=== PATIENT | male | born 1990 | race Caucasian/White ===

== ENCOUNTER 2022-10-26 04:00 | Emergency (ER) | payer OTHER, BC, SELFPAY ==
[2022-10-26 04:00] VITALS: BP 155/90; PULSE 101; RESP 16; TEMP 36.6; O2SAT 97; BMI 27.8
--- NOTE | 2022-10-26 05:39 | EDS_ITS ---
HPI History of Present Illness HPI Narrative: Left index finger laceration at work. Within the last 2 hours. Chief Complaint: Laceration Informant: patient Occured/Mechanism Mechanism/Context: Yes injury Onset/Context/Timing Onset: Today and Hours Context: Sudden Onset Timing: Continuous Quality of Pain: Sharp Current Severity: Mild Maximum Severity: Mild Associated Symptoms Associated Symptoms: Negative for Parasthesia, Weakness or Loss of Funtion Narrative Narrative: 32-year-old male no seen past medical history. Tetanus up-to-date within the last 5 years. Was at work tonight and cut his left index finger on the palmar distal and on a piece of metal. No other complaints. Worker's Comp. Tetanus Immunization: <5 years Prior similar symptoms: Yes Recent Illness/Hospitalization: No PFSH PFSH no medical history Home Medications NK 10/26/22 [History Last Taken Unknown] Allergy/AdvReac Type Severity Reaction Status Date / Time No Known Allergies Allergy Verified 10/26/22 04:02 no surgical history Social History Smoking Status: Never smoker ROS ROS ED ROS Narrative Denies recent illness. Review of Systems ROS Unobtainable: Denies due to encephalopathy Constitutional Constitutional ED: Denies chills or fever(s) Eyes Eyes: Denies blurry vision ENT ENT ED: Denies ear pain Cardiovascular Cardiovascular: Denies chest pain Respiratory/Chest Respiratory/Chest: Denies cough Gastrointestinal Gastrointestinal: Denies abdominal pain Genitourinary Genitourinary ED: Denies dysuria Musculoskeletal Musculoskeletal: Denies back pain Integumentary Denies abscess Neurologic Neurologic: Denies headache(s) Psychiatric Psychiatric: Denies anxiety Endocrine Endocrinology: Denies cold intolerance Hematologic/Lymphatic Hematologic/Lymphatic: Denies easy bleeding or easy bruising Allergic/Immunologic Allergic/Immunologic ED: Denies mouth swelling or tongue swelling EXAM Physical Exam Narrative Exam Narrative: 32-year-old male no acute distress vital signs stable afebrile. Exam normal except left index finger palmar distal and he has a 3 cm laceration. Flexion extension intact. Normal touch sensation. Normal cap refill. There is pulsatile bleeding at the is a branch of the ulnar side digital nerve of the left index finger. No foreign body no infection. Const Vital Signs: 10/26/22 04:00 Temperature 98 F Temperature Source Temporal Pulse Rate 101 H Respiratory Rate 16 Blood Pressure 155/90 H Blood Pressure Mean 111 Pulse Ox 97 Oxygen Delivery Method Room Air Positive well nourished and well developed; Negative for obese, cachectic, contractures or unkempt General Appearance ED: well developed and NAD; Negative for unkempt, cachectic, contractures, cyanotic or diaphoretic Nutritional Appearance: Negative for cachectic or obese HEENT Reports moist mucous membranes normocephalic and atraumatic; Negative for trauma or tenderness Eyes PERRL and EOMs intact bilaterally General Eye ED: Negative for other Neck full ROM and supple General: Negative for tenderness Lymph Lymphatic: Negative for other Resp normal respiratory effort and clear to auscultation bilaterally Effort and Inspection: Negative for pain with movement Auscultation: Negative for rales, rhonchi or wheezes Cardio regular rate, regular rhythm, S1 normal heart sound, S2 normal heart sound and no murmurs GI non-tender, non-distended and no masses Extremity normal to inspection and full ROM Extremity Narrative: Except laceration distal third left index finger just past the DIP. Involves the skin and subcu tissue. No joint or bony involvement. There is a pulsatile bleeding at the ends of branch of the digital artery. He has cap refill. He has distal touch sensation. No foreign body. No infection. Full flexion extension. General Extremety ED: Negative for other findings General Extremity: Negative for other findings Neuro oriented x3, CN's II-XII intact bilaterally, moves all extremities, no focal motor deficits and no sensory deficits noted Sensorium / Orientation: alert, oriented to person, oriented to place and oriented to time; Negative for orientation impaired, lethargic or stuporous Motor Exam: strength 5/5 throughout Psych mental status grossly normal Appearance: Negative for unkempt Attitude: No agitated Mood & Affect: Negative for depressed, anxious or tearful Skin Lesions: no lesions Rashes: no rashes Trauma: laceration; Negative for no lacerations or abrasions MDM MDM MDM Narrative Medical decision making narrative: 32-year-old male left index finger laceration at work. Worker's Comp. Will need repaired. Digital block. Cleaned with Shur-Clens. Copiously irrigated and explored. Closed using a total of 6, 5-0 Ethilon simple interrupted sutures. Proper hemostasis and wound closure obtained. Patient tolerated procedure well. He was instructed on wound care. Suture removal in 10 to 14 days. History & Record Review Discussion w/independent historian: Patient Procedures Lacerations Left index finger laceration:: Length: 1.18 in Depth: Sub Q Shape: Linear Prep: Shure-Clens Laceration repair: Digital block, Irrigated, Lidocaine and Skin sutures Number of Sutures/[facility]: 6 Suture Information: Ethilon, Simple and 5-0 Comment: Total of 6, 5-0 Ethilon simple interrupted sutures. Proper hemostasis wound closure obtained. Patient tolerated procedure well. He was instructed on wound care and suture removal. Discharge Plan Triage Chief Complaint: Laceration ED Provider: Leonard Barry Dx/Rx/DC Orders Clinical Impression: Finger laceration, Encounter related to worker's compensation claim Instructions: ED Laceration, Hand: All Closures Prescriptions: No Action NK Primary Care Provider: RADHA AARON Referrals: RADHA AARON [Other] [facility] [Group of Physicians] - 10-14 Days suture removal Activity Restrictions/Additional Instructions: Clean the finger daily with soap and water. Dry thoroughly. Do not let it soak in any water. Apply antibiotic ointment. Stitches out in 10 to 14 days. Ice and elevate to decrease pain and swelling. Motrin and Tylenol for pain. Any signs of infection redness, pus, streaks swelling return. Heavy bleeding return. Do not wear any jewelry on that hand for the next week. Disposition Disposition: Home, Self Care
[2022-10-26] MEDS: Lidocaine 1% (20 ml mdv) 20 ML Vial INFILT (05:47)
== END 2022-10-26 05:50 | disposition home or self-care (01) ==
PROVIDERS: Emergency Provider Emergency Medicine; Visit Provider Emergency Medicine
DX: S61.211A Laceration without foreign body of left index finger without damage to nail, initial encounter (principal); W26.8XXA Contact with other sharp object(s), not elsewhere classified, initial encounter; Y99.0 Civilian activity done for income or pay
CPT/HCPCS: 12002; 99282